=== PATIENT | female | born 1950 | race Caucasian/White ===

== ENCOUNTER 2017-04-09 18:07 | Emergency (ER) | payer MEDICARE ==
[2017-04-09 18:15] VITALS: BP 133/77
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
[2017-04-09] MEDS ORDERED: LIDOCAINE 1%-EPI 1:100000 20 ML MDV SUBQ STA (19:11)
[2017-04-09] MEDS ORDERED: LIDOCAINE 1%-EPI 1:100000 20 ML MDV ONE (19:17)
== END 2017-04-09 20:04 | disposition home or self-care (01) ==
LOC: ED 18:07
DX: S91.342A Puncture wound with foreign body, left foot, initial encounter (principal); W45.8XXA Other foreign body or object entering through skin, initial encounter; W25.XXXA Contact with sharp glass, initial encounter; Y92.009 Unspecified place in unspecified non-institutional (private) residence as the place of occurrence of the external cause; I10 Essential (primary) hypertension; I25.10 Atherosclerotic heart disease of native coronary artery without angina pectoris; I25.2 Old myocardial infarction; Z79.82 Long term (current) use of aspirin
CPT/HCPCS: 10060; 99282

== ENCOUNTER 2017-06-07 10:46 | Outpatient (CLI) | payer MEDICARE ==
--- NOTE | 2017-06-08 17:57 | Mammography Report ---
DIGITAL SCREENING MAMMOGRAM: 06/07/2017 CLINICAL INDICATION: A 67-year-old for screening. COMPARISON: 07/2009, 11/2008, 10/2008. TECHNIQUE: Routine CC and MLO projections were obtained of the breasts. FINDINGS: Scattered fibroglandular tissue is present within the breasts. There are no dominant mass es, suspicious microcalcifications, or secondary signs of malignancy. In comparison to the previous studies, there are no significant changes. ASSESSMENT: NO MAMMOGRAPHIC EVIDENCE OF MALIGNANCY. NO SIGNIFICANT INTERVAL CHANGES. RECOMMENDATION: Screening mammography is recommended annually. BIRADS category 1 - negative. STANDARD QUALIFYING STATEMENTS 1. This examination was reviewed with the aid of Computed-Aided Detection (CAD). 2. A negative or benign imaging report should not delay biopsy if clinically suspicious findings are present. Consider surgical consultation if warranted. More than 5% of cancers are not identified b y imaging. 3. Dense breasts may obscure an underlying neoplasm. JOB #: [id number] EXT JOB #:[id number]
== END 2017-06-07 10:47 | disposition home or self-care (01) ==
LOC: DI 10:46
PROVIDERS: ATTEND Family Medicine
DX: Z12.31 Encounter for screening mammogram for malignant neoplasm of breast (principal)
CPT/HCPCS: 77067

== ENCOUNTER 2019-03-15 16:52 | Outpatient (CLI) | payer MEDICARE ==
--- NOTE | 2019-03-16 08:27 | Ultrasound Report ---
Reason: POSTMENOPAUSAL BLEEDING Procedure Date: 03/15/2019 Accession Number: [id number] / [id number] Procedure: US - Pelvic w/Transvaginal CPT Code: FULL RESULT: EXAM: PELVIC ULTRASOUND EXAM DATE: 03/15/2019 05:01 PM. CLINICAL HISTORY: Postmenopausal bleeding with previous history of D COMPARISON: None. TECHNIQUE: Real-time transabdominal pelvic scan performed to identify the uterus and adnexa and as an overview of other pelvic structures, followed by transvaginal scan to provide greater detail of the uterus and adnexa, with static image documentation. FINDINGS: Uterus: 7.9 x 3.8 x 4.8 cm, volume 75.4 cc. Anteverted position. Normal overall size and echotexture. Masses: None. Endometrium: 9 mm. Normal. Cervix: No mass. Incidental nabothian cysts are noted. Right Ovary: 1 x 0.9 x 1 cm, volume 0.5 cc. Normal echotexture and blood flow. Left Ovary: Ovary not seen. No adnexal abnormality. Limitation secondary to bowel gas. Free Fluid: None. Other: None. IMPRESSION: 1. Abnormal heterogeneous thickened endometrium. In a postmenopausal woman, imaging findings may represent hyperplasia or endometrial carcinoma. If symptoms persist, recommend endometrial sampling. Favor hyperplasia over endometrial carcinoma given the absence of definite invasion. 2. Atrophic right ovary. Otherwise, normal right ovary and adnexa. 3. Left ovary not seen. Normal left adnexa. 4. No uterine mass. RADIA
== END 2019-03-15 16:53 | disposition home or self-care (01) ==
LOC: DI 16:52
PROVIDERS: ATTEND Obstetrics & Gynecology
DX: R93.89 Abnormal findings on diagnostic imaging of other specified body structures (principal); N83.311 Acquired atrophy of right ovary
CPT/HCPCS: 76830; 76856

== ENCOUNTER 2021-06-09 13:20 | Outpatient (CLI) | payer MEDICARE | END 2021-06-09 13:21 | disposition critical access hospital (66) | LOC: EMS 13:20 | DX: M54.2 Cervicalgia (principal) | CPT/HCPCS: A0425; A0429 ==

== ENCOUNTER 2021-06-09 13:23 | Emergency (ER) | payer MEDICARE ==
--- NOTE | 2021-06-09 13:26 | ED Physician Documentation ---
PD HPI Fall - Stated complaint Stated Complaint: GLF - History obtained from History obtained from: Patient, EMS - Additional information Additional information: She was outside in her garden and her glasses were too dark. The ground was not flat and she lost her balance and fell hitting her neck directly on the deck. She complains of moderate neck pain but declines pain medication. She has been ambulatory since the accident. No other injuries except for a scrape on the right hand. Tetanus is up-to-date. Review of Systems Ten Systems: 10 systems reviewed and negative Constitutional: reports: Reviewed and negative Cardiac: reports: Reviewed and negative Respiratory: reports: Reviewed and negative PD PAST MEDICAL HISTORY - Past Medical History Cardiovascular: Hypertension, Coronary artery disease, [place] Respiratory: Asthma GI: GERD Psych: None Musculoskeletal: None - Past Surgical History Past Surgical History: Yes General: Cholecystectomy, Appendectomy HEENT: Tonsil/Adenoidectomy - Present Medications Home Medications: Ambulatory Orders Medication Instructions Recorded Confirmed Aspirin [Aspir 81] 162 mg PO DAILY 05/30/13 05/17/16 Citalopram [CeleXA] 10 mg PO DAILY 05/30/13 05/17/16 EPINEPHrine [Epipen] 0.3 mg IM ONCE #2 syringe 05/30/13 05/17/16 diphenhydrAMINE HCl [Benadryl] 25 - 50 mg PO Q6H PRN #30 capsule 05/30/13 05/17/16 Levothyroxine [Synthroid] 100 mcg PO QDAC 11/09/13 05/17/16 Omeprazole 20 mg PO DAILY 11/09/13 05/17/16 predniSONE [Prednisone] 40 mg PO DAILY 3 Days tablet 05/17/16 - Allergies Allergies/Adverse Reactions: Allergies Allergy/AdvReac Type Severity Reaction Status Date / Time isosorbide Allergy Hives Verified 06/09/21 13:35 venom-honey bee Allergy resp Verified 06/09/21 13:35 [bee venom (honey bee)] morphine AdvReac Mild Nausea Verified 06/09/21 13:35 codeine [Codeine] AdvReac Respiratory Verified 06/09/21 13:35 - Social History Does the pt smoke?: No Smoking Status: Never smoker Does the pt drink ETOH?: No Does the pt have substance abuse?: No - Immunizations Immunizations are current?: Yes - POLST Patient has POLST: No PD ED PE NORMAL - Vitals Vital signs reviewed: Yes - General General: Alert and oriented X 3, No acute distress - HEENT HEENT: PERRL, EOMI - Neck Neck: Other (Tender to the mid and upper C-spine and c-collar was maintained) - Cardiac Cardiac: RRR, No murmur - Respiratory Respiratory: No respiratory distress, Clear bilaterally - Abdomen Abdomen: Normal bowel sounds, Soft, Non tender - Back Back: No CVA TTP, No spinal TTP - Derm Derm: Normal color, Warm and dry - Extremities Extremities: Other (Very shallow scrape on the dorsum of the right hand at the level of the fifth metacarpal without tenderness or limited range of motion) - Neuro Neuro: Alert and oriented X 3, Normal speech Eye Opening: Spontaneous Motor: Obeys Commands Verbal: Oriented GCS Score: 15 - Psych Psych: Normal mood, Normal affect Results - Vitals Vitals: Vital Signs - 24 hr // 13:35 Temperature 37.0 C Heart Rate 85 Respiratory 16 Rate Blood Pressure 150/67 H O2 Saturation 96 Oxygen O2 Source Room air PD MEDICAL DECISION MAKING - ED course ED course: Cervical spine CT done without IV contrast is unremarkable. On reexamination after the removal of the c-collar she has a bruise on the right submental area which is not tender and a abrasion on the right side of the neck. No residual midline spinal tenderness. Departure - Departure Disposition: 01 Home, Self Care Clinical Impression: Neck contusion Qualifiers: Encounter type: initial encounter Qualified Code(s): S10.93XA - Contusion of unspecified part of neck, initial encounter Condition: Good Record reviewed to determine appropriate education?: Yes Instructions: ED Sprain Strain Neck Comments: Soap and water in the abrasions and gentle cleansing is all that is necessary. Return for new or worsening symptoms. Follow-up with your doctor in a week if not better.
--- NOTE | 2021-06-09 14:09 | CT Report ---
PROCEDURE: CERVICAL SPINE WO INDICATIONS: neck injury TECHNIQUE: Noncontrast 3 mm thick sections acquired from the skull base to the T4 level. Sagittal and coronal r eformats were then constructed. For radiation dose reduction, the following was used: automated exp osure control, adjustment of mA and/or kV according to patient size. COMPARISON: None. FINDINGS: Image quality: Excellent. Bones: No fractures or dislocations. Bony fusion at C5-6 level is seen. Degenerative endplate change s are noted at C6-7 and C7-T1 levels. No significant central canal stenosis or neural foraminal narro wing is noted. Visualized superior ribs are intact. Soft tissues: Prevertebral soft tissues are normal in thickness. No paravertebral hematomas. No ap ical pneumothoraces. Emphysematous changes are noted in visualized bilateral upper lobes. IMPRESSION: 1. No acute cervical spine fracture or dislocation. 2. Bony fusion at C5-6 level. Degenerative endplate changes are seen at C6-7 and C7-T1 levels. Reviewed by: Vu Huggins MD on 06/09/2021 2:08 PM PDT Approved by: Vu Huggins MD on 06/09/2021 2:08 PM PDT Station ID: [id number]
[2021-06-09 14:26] VITALS: BP 121/61
== END 2021-06-09 14:27 | disposition home or self-care (01) ==
LOC: EDUNIT# → ED 13:23 → SUPCPDRO 13:23 → ED 14:27
DX: S10.83XA Contusion of other specified part of neck, initial encounter (principal); S10.81XA Abrasion of other specified part of neck, initial encounter; S60.511A Abrasion of right hand, initial encounter; W01.198A Fall on same level from slipping, tripping and stumbling with subsequent striking against other object, initial encounter; Y92.007 Garden or yard of unspecified non-institutional (private) residence as the place of occurrence of the external cause; I10 Essential (primary) hypertension; Z79.82 Long term (current) use of aspirin
CPT/HCPCS: 99282; 99284

== ENCOUNTER 2021-08-21 07:00 | Outpatient (CLI) | payer MEDICARE | END 2021-08-21 23:59 | disposition home or self-care (01) | LOC: COV 07:00 | PROVIDERS: ATTEND Student in an Organized Health Care Education/Training Program | DX: Z20.822 Contact with and (suspected) exposure to COVID-19 (principal) ==

== ENCOUNTER 2022-11-23 12:35 | Outpatient (CLI) | payer MEDICARE | END 2022-11-23 12:36 | disposition home or self-care (01) | LOC: RT 12:35 | PROVIDERS: ATTEND Obstetrics & Gynecology | DX: Z01.810 Encounter for preprocedural cardiovascular examination (principal) | CPT/HCPCS: 93005 ==

== ENCOUNTER 2023-07-20 23:48 | Emergency (ER) | payer MEDICARE ==
--- NOTE | 2023-07-21 | ED Physician Documentation ---
PD HPI HEENT - Stated complaint Stated Complaint: R EAR PX - Chief complaint Chief Complaint: Heent - History obtained from History obtained from: Patient - Additional information Additional information: HPI from patient. Patient woke this morning with right ear pain. Initially, this was a mild, dull aching pain. However, over the course of the day today, the pain has steadily progressed in severity. The pain is constant, worse with pressure to the right ear. She also notes mild sore throat. She denies history of similar symptoms regarding her right ear pain. Denies decreased hearing, denies discharge from the ear, denies injury. Review of Systems Constitutional: denies: Fever Ears: reports: Ear pain. denies: Loss of hearing, Drainage/discharge, Tinnitus/ringing Nose: denies: Rhinorrhea / runny nose, Congestion, Sinus pressure / pain Throat: reports: Sore throat (mild) Respiratory: denies: Cough Skin: denies: Rash PD PAST MEDICAL HISTORY - Past Medical History Cardiovascular: Hypertension, Coronary artery disease, [place] Respiratory: Asthma GI: GERD Psych: None Musculoskeletal: None - Past Surgical History Past Surgical History: Yes General: Cholecystectomy, Appendectomy HEENT: Tonsil/Adenoidectomy - Present Medications Home Medications: Ambulatory Orders Medication Instructions Recorded Confirmed Aspirin [Aspir 81] 162 mg PO DAILY 05/30/13 05/17/16 Citalopram [CeleXA] 10 mg PO DAILY 05/30/13 05/17/16 EPINEPHrine [Epipen] 0.3 mg IM ONCE #2 syringe 05/30/13 05/17/16 diphenhydrAMINE HCl [Benadryl] 25 - 50 mg PO Q6H PRN #30 capsule 05/30/13 05/17/16 Levothyroxine [Synthroid] 100 mcg PO QDAC 11/09/13 05/17/16 Omeprazole 20 mg PO DAILY 11/09/13 05/17/16 predniSONE [Prednisone] 40 mg PO DAILY 3 Days tablet 05/17/16 Amox/Clav 875/125 [Augmentin 1 tablet PO Q12H 7 Days #14 tablet 07/21/23 875/125 Tab] - Allergies Allergies/Adverse Reactions: Allergies Allergy/AdvReac Type Severity Reaction Status Date / Time isosorbide Allergy Hives Verified 06/09/21 13:35 venom-honey bee Allergy resp Verified 06/09/21 13:35 [bee venom (honey bee)] morphine AdvReac Mild Nausea Verified 06/09/21 13:35 codeine [Codeine] AdvReac Respiratory Verified 06/09/21 13:35 - Social History Does the pt smoke?: No Smoking Status: Never smoker Does the pt drink ETOH?: No Does the pt have substance abuse?: No - Immunizations Immunizations are current?: Yes - POLST Patient has POLST: No PD ED PE NORMAL - Vitals Vital signs reviewed: Yes - General General: Alert and oriented X 3, No acute distress, Well developed/nourished PD ED PE EXPANDED - HEENT HEENT: R TM dull, Other (trace erythema right EAC; pain elicited with traction on pinna, pressure to tragus) Results - Vitals Vitals: Vital Signs - 24 hr 07/20/23 07/21/23 23:56 01:32 Temperature 36.5 C 37 C Heart Rate 89 71 Respiratory 16 20 Rate Blood Pressure 154/68 H 130/72 O2 Saturation 99 100 Oxygen O2 Source Room air PD Medical Decision Making - ED course Complexity details: considered differential, d/w patient ED course: HPI combined with findings on exam are suggestive of right external otitis with some elements to suggest otitis media, as well. Cortisporin otic drops are instilled in the ear with the bottle given to take home and instructions on their use. She is also given a dose of p.o. Augmentin, and a prescription for a 1-week course of Augmentin is electronically submitted to patient's pharmacy of choice. Departure - Departure Disposition: 01 Home, Self Care Clinical Impression: Ear pain, right Condition: Good Instructions: ED Otitis Media Acute Adult, ED Otitis Externa Prescriptions: Amox/Clav 875/125 [Augmentin 875/125 Tab] 1 tablet PO Q12H 7 Days #14 tablet Comments: Your symptoms combined with some of the findings on the physical exam are suggestive of outer ear infection as well as a middle ear infection. You are given the first dose of an oral antibiotic (Augmentin) in the emergency department, and I have electronically submitted a prescription for a 1-week course of this antibiotic to the [facility] pharmacy in [place]. You are also provided with antibiotic ear drops in the emergency department. Use the ear drops as follows: 3-4 drops in the right ear 3 times per day for 5 days (if still having symptoms, continue up to 7 days total; if your symptoms have not resolved within one week, you should seek follow up with your PCP). If your symptoms do not significantly in 2 to 3 days, you should follow-up with your primary care provider for reevaluation. Discharge Date/Time: 07/21/23 01:30
[2023-07-21] MEDS ORDERED: AMOX/CLAV 875 MG/125 MG TABLET PO STA (00:17)
[2023-07-21] MEDS ORDERED: NEOMYCIN/POLYMYX/HC OTIC DROPS RIGHTEAR STA (00:17)
[2023-07-21 01:36] VITALS: BP 130/72; O2SAT 100
== END 2023-07-21 01:30 | disposition home or self-care (01) ==
LOC: ED 23:48
DX: H92.01 Otalgia, right ear (principal)
CPT/HCPCS: 99282; 99283; A9270